=== PATIENT | male | born 1980 | race Hispanic/Latino ===

== ENCOUNTER 2021-01-24 19:11 | Inpatient (IN) | payer SELFPAY ==
[~2021-01-24 19:11] MED LIST: Iopamidol-370 76% 500 ML 1 ML ONE
[2021-01-24 19:34] LABS: Mean Corpuscular HGB CONC 34.5 g/dL (32.0-36.0); Mean Corpuscular Hemoglobin 32.4 pg (27.0-31.0); RBC Distribution Width 11.8 % (11.5-14.5); Red Blood Cell (RBC) Count 4.32 mill/uL (4.70-6.10); White Blood Cell (WBC) Count 7.5 thou/uL (4.8-10.8)
[2021-01-24] MEDS ORDERED: Azithromycin 500 MG VIAL ONE (19:36)
[2021-01-24] MEDS ORDERED: cefTRIAXone\\ROCEPHIN 1 GM VIAL ONE (19:36)
[2021-01-24] MEDS ORDERED: Acetaminophen 500 MG TAB ONE (19:37)
[2021-01-24] MEDS ORDERED: Ibuprofen 200 MG TAB ONE (19:50)
[2021-01-24 19:52] LABS: Band 22 % (5-11); Lymphocytes 8 % (21-51); MDiff Complete? YES; Monocytes 7 % (0-10); Neutrophil 63 % (42-75); Platelet Count 97 thou/uL (130-400); Platelet Morphology Comment Appears Decreased; RBC Morphology Normal
[2021-01-24 19:58] LABS: ALT (SGPT) 123 U/L (8-55); AST (SGOT) 132 U/L (5-34); Albumin 3.8 g/dL (3.5-5.0); Alkaline Phosphatase 115 U/L (40-110); Anion Gap 18 mmol/L (10-20); BUN (Urea Nitrogen) 13 mg/dL (8.9-20.6); Bilirubin, Total 1.7 mg/dL (0.2-1.2); Calc. Creatinine Clearance 0 mL/min (70-130); Calcium 8.1 mg/dL (7.8-10.44); Carbon Dioxide 24 mmol/L (22-29); Chloride 102 mmol/L (98-107); Globulin 2.9 g/dL (2.4-3.5); Glucose 153 mg/dL (70-105); Lipase 17 U/L (8-78); Potassium 3.6 mmol/L (3.5-5.1); Protein, Total 6.7 g/dL (6.0-8.3); Sodium 140 mmol/L (136-145)
[2021-01-24] MEDS ORDERED: Morphine 4 MG/ML VIAL ONE (20:21)
[2021-01-24 20:30] LABS: Bacteria/HPF 2+ HPF (None Seen); Bilirubin Negative (Negative); Blood, Urine 3+ (Negative); Clarity Turbid (Clear); Glucose, Urine (Dipstick) 300 mg/dL (Negative); Ketone, Urine Trace mg/dL (Negative); Leukocyte 250 Leu/uL (Negative); Mucous/LPF Rare LPF (<2+); Nitrite Negative (Negative); Protein, Urine (Dipstick) 100 mg/dL (Neg-Trace); RBC/HPF 21-50 HPF (0-3); Specific Gravity, Urine 1.019 (1.002-1.036); Squamous Epithelial 0-3 HPF (0-3); Urobilinogen 6 mg/dL (Less than 2); WBC/HPF 21-50 HPF (0-3)
[2021-01-24 20:37] LABS: White Blood Cell Cast 0-3 LPF (None Seen)
[2021-01-24 21:01] LABS: SARS-CoV-2 NAA Rapid Test Not Detected (NotDetected)
[2021-01-24 22:43] LABS: Lactic Acid 1.6 mmol/L (0.5-2.2)
[2021-01-24] MEDS: Sodium Chloride 0.9% 1,000 ML IV SCH (23:15)
[2021-01-24 23:56] LABS: Legionella Urinary Ag Negative (Negative)
[2021-01-24 23:57] LABS: Strep pneumo Urine Ag NEGATIVE (NEGATIVE)
[2021-01-25] MEDS ORDERED: Ondansetron PF 4 MG/2 ML Vial IVP PRN (01:53)
[2021-01-25] MEDS ORDERED: Acetaminophen 500 MG TAB PO PRN (01:55)
[2021-01-25 02:37] LABS: Acetaminophen Less than 6.0 mcg/mL (10.0-30.0)
[2021-01-25 02:45] LABS: Albumin 2.9 g/dL (3.5-5.0); Band 21 % (5-11); Hemoglobin 11.3 g/dL (14.0-18.0); Hypochromia SLIGHT = 6-15 cells (100X) (0-5/hpf); MDiff Complete? YES; Mean Corpuscular HGB CONC 37.1 g/dL (32.0-36.0); Mean Corpuscular Hemoglobin 35.1 pg (27.0-31.0); Mean Corpuscular Volume 94.7 fL (78.0-98.0); Mean Platelet Volume 8.2 fL (7.4-10.4); Monocytes 5 % (0-10); Neutrophil 74 % (42-75); Platelet Count 63 thou/uL (130-400); Platelet Morphology Comment Appears Decreased; RBC Distribution Width 11.8 % (11.5-14.5); Red Blood Cell (RBC) Count 3.21 mill/uL (4.70-6.10); White Blood Cell (WBC) Count 18.4 thou/uL (4.8-10.8)
[2021-01-25 02:46] LABS: Chloride 109 mmol/L (98-107); Potassium 3.6 mmol/L (3.5-5.1); Sodium 140 mmol/L (136-145)
[2021-01-25 02:47] LABS: Calcium 7.8 mg/dL (7.8-10.44)
[2021-01-25 02:48] LABS: Globulin 2.7 g/dL (2.4-3.5); Glucose 174 mg/dL (70-105); Protein, Total 5.6 g/dL (6.0-8.3)
[2021-01-25 02:49] LABS: Anion Gap 14 mmol/L (10-20); Bilirubin, Total 2.2 mg/dL (0.2-1.2); Carbon Dioxide 21 mmol/L (22-29)
[2021-01-25 02:50] LABS: Alkaline Phosphatase 107 U/L (40-110)
[2021-01-25 02:51] LABS: Calc. Creatinine Clearance 81 mL/min (70-130)
[2021-01-25 02:52] LABS: BUN (Urea Nitrogen) 17 mg/dL (8.9-20.6)
[2021-01-25 02:53] LABS: ALT (SGPT) 95 U/L (8-55); AST (SGOT) 76 U/L (5-34)
[2021-01-25] MEDS: Sodium Chloride 0.9% 1,000 ML IV SCH ×3 (05:31→22:50)
[2021-01-25 05:52] VITALS: BMI 26.1
[2021-01-25] MEDS ORDERED: FLU VACC QS2021-22(6MOS UP)/PF 60 MCG/0.5 ML SYRINGE IM ONE (09:00)
[2021-01-25] MEDS ORDERED: guaiFENesin ER 600 MG TAB PO SCH (15:00)
[2021-01-25] MEDS: cefTRIAXone\\ROCEPHIN 1 GM in Sodium Chloride 0.9% 100 ML IVPB SCH (18:07)
[2021-01-25] MEDS: Azithromycin 500 MG in Sodium Chloride 0.9% 250 ML 250 ML IVPB SCH (21:22)
[2021-01-25] MEDS: guaiFENesin ER 600 MG TAB PO SCH (22:57)
[2021-01-26 05:59] LABS: #Eosinphils 0.2 thou/uL (0.0-0.7); #Lymphocytes 1.5 thou/uL (1.20-3.40); #Monocytes 1.1 thou/uL (0.11-0.59); #Neutrophils 4.5 thou/uL (1.40-6.50); %Basophils 0.1 % (0.0-1.0); %Eosinophils 2.2 % (0.0-10.0); %Lymphocytes 21.2 % (21.0-51.0); %Monocytes 14.7 % (0.0-10.0); %Neutrophils 61.7 % (42.0-75.0); Hemoglobin 11.3 g/dL (14.0-18.0); Mean Corpuscular HGB CONC 34.5 g/dL (32.0-36.0); Mean Corpuscular Hemoglobin 33.1 pg (27.0-31.0); Mean Platelet Volume 8.2 fL (7.4-10.4); Platelet Count 59 thou/uL (130-400); RBC Distribution Width 11.9 % (11.5-14.5); White Blood Cell (WBC) Count 7.3 thou/uL (4.8-10.8)
[2021-01-26] MEDS: Sodium Chloride 0.9% 1,000 ML IV SCH ×2 (06:08→14:12)
[2021-01-26 06:19] LABS: ALT (SGPT) 71 U/L (8-55); AST (SGOT) 40 U/L (5-34); Albumin 2.9 g/dL (3.5-5.0); Alkaline Phosphatase 92 U/L (40-110); Anion Gap 12 mmol/L (10-20); BUN (Urea Nitrogen) 18 mg/dL (8.9-20.6); Bilirubin, Total 0.6 mg/dL (0.2-1.2); Calc. Creatinine Clearance 118 mL/min (70-130); Calcium 8.7 mg/dL (7.8-10.44); Carbon Dioxide 23 mmol/L (22-29); Chloride 108 mmol/L (98-107); Globulin 2.9 g/dL (2.4-3.5); Glucose 102 mg/dL (70-105); Potassium 3.4 mmol/L (3.5-5.1); Protein, Total 5.8 g/dL (6.0-8.3); Sodium 140 mmol/L (136-145)
[2021-01-26] MEDS: guaiFENesin ER 600 MG TAB PO SCH ×2 (08:36→22:47)
[2021-01-26] MEDS: cefTRIAXone\\ROCEPHIN 1 GM in Sodium Chloride 0.9% 100 ML IVPB SCH (18:26)
[2021-01-26] MEDS: Azithromycin 500 MG in Sodium Chloride 0.9% 250 ML 250 ML IVPB SCH (22:55)
[2021-01-27] MEDS: Sodium Chloride 0.9% 1,000 ML IV SCH ×2 (00:43→10:44)
[2021-01-27 05:01] LABS: #Eosinphils 0.2 thou/uL (0.0-0.7); #Lymphocytes 1.9 thou/uL (1.20-3.40); #Monocytes 0.7 thou/uL (0.11-0.59); #Neutrophils 4.1 thou/uL (1.40-6.50); %Basophils 0.2 % (0.0-1.0); %Eosinophils 2.3 % (0.0-10.0); %Lymphocytes 27.6 % (21.0-51.0); %Monocytes 9.8 % (0.0-10.0); %Neutrophils 60.1 % (42.0-75.0); Hemoglobin 11.7 g/dL (14.0-18.0); Mean Corpuscular HGB CONC 34.3 g/dL (32.0-36.0); Mean Corpuscular Hemoglobin 32.1 pg (27.0-31.0); Mean Corpuscular Volume 93.7 fL (78.0-98.0); Mean Platelet Volume 7.6 fL (7.4-10.4); Platelet Count 63 thou/uL (130-400); RBC Distribution Width 11.8 % (11.5-14.5); Red Blood Cell (RBC) Count 3.63 mill/uL (4.70-6.10); White Blood Cell (WBC) Count 6.7 thou/uL (4.8-10.8)
[2021-01-27 05:22] LABS: ALT (SGPT) 57 U/L (8-55); AST (SGOT) 26 U/L (5-34); Albumin 2.9 g/dL (3.5-5.0); Alkaline Phosphatase 84 U/L (40-110); Anion Gap 10 mmol/L (10-20); BUN (Urea Nitrogen) 16 mg/dL (8.9-20.6); Bilirubin, Total 0.7 mg/dL (0.2-1.2); Calc. Creatinine Clearance 132 mL/min (70-130); Carbon Dioxide 26 mmol/L (22-29); Chloride 109 mmol/L (98-107); Globulin 3.1 g/dL (2.4-3.5); Glucose 110 mg/dL (70-105); Potassium 3.3 mmol/L (3.5-5.1); Sodium 142 mmol/L (136-145)
[2021-01-27] MEDS ORDERED: Potassium Chloride 20 MEQ TAB PO SCH (09:45)
[2021-01-27] MEDS: guaiFENesin ER 600 MG TAB PO SCH (10:44)
[2021-01-27 13:18] VITALS: BP 128/87; TEMP 97.7
== END 2021-01-27 13:35 | disposition home or self-care (01) | DRG 871 ==
LOC: ERS 19:11 → 2NO 21:16
PROVIDERS: ADMIT Internal Medicine; ATTEND Family Medicine
DX: A40.3 Sepsis due to Streptococcus pneumoniae (principal); J13 Pneumonia due to Streptococcus pneumoniae; J96.01 Acute respiratory failure with hypoxia; N39.0 Urinary tract infection, site not specified; N17.9 Acute kidney failure, unspecified; Z20.822 Contact with and (suspected) exposure to COVID-19; I10 Essential (primary) hypertension; D69.6 Thrombocytopenia, unspecified; Z79.82 Long term (current) use of aspirin; Z79.899 Other long term (current) drug therapy
CPT/HCPCS: 0240U; 36415; 71045; 71275; 80053; 80143; 81003; 81015; 83605; 83690; 84484; 85025; 87040; 87070; 87086; 87205; 87449; 87899; 93005; 96365; 96375; 80307; J0456; J0696; J2270; J3490; J7050; Q9967